=== PATIENT | male | born 1940 | race Caucasian/White ===

== ENCOUNTER 2023-12-29 21:57 | Inpatient (IN) | payer MEDICARE, SELFPAY ==
[2023-12-29 18:11] VITALS: BP 141/66
[2023-12-29 18:12] VITALS: BMI 21.6
[2023-12-29 18:21] LABS: Hematocrit 33.6 % (39.0-52.0); Hemoglobin 11.4 g/dL (13.0-18.0); Mean Corp Hgb Conc. 33.9 g/dL (33.0-37.0); Mean Corpuscular Hgb 30.7 pg (27.0-31.0); Mean Corpuscular Volume 90.6 fL (80.0-94.0); Platelet Count 232 10^3/uL (130-400); Red Blood Cell Count 3.71 10^6/uL (4.70-6.10); Red Cell Dist. Width 13.3 % (11.5-14.5); White Blood Cell Count 9.1 10^3/uL (4.8-10.8)
[2023-12-29 18:48] LABS: ALT (SGPT) 13 U/L (0-50); AST (SGOT) 16 U/L (17-59); Albumin 3.8 g/dl (3.5-5.0); Alkaline Phosphatase 110 U/L (38-126); Blood Urea Nitrogen 30 mg/dl (9-20); Calcium 9.5 mg/dl (8.4-10.2); Carbon Dioxide 23 mmol/L (22-30); Chloride 103 mmol/L (98-107); Estimated Creatinine Clearance 26 ml/min; Glucose 109 mg/dl (70-99); Magnesium 2.1 mg/dl (1.6-2.3); Potassium 4.3 mmol/L (3.5-5.1); Sodium 132 mmol/L (135-145); Total Bilirubin 0.5 mg/dl (0.2-1.3); Total Protein 6.6 g/dl (6.3-8.2); eGFR 36.43
[2023-12-29 19:00] VITALS: BP 150/87
--- NOTE | 2023-12-29 19:08 | ED.CVA ---
History of Present Illness
General
Chief Complaint: CVA/TIA Symptoms
Source: patient
Exam Limitations: dementia
Time Seen by Provider: 12/29/23 17:59
Nursing documentation reviewed up to this point in time: agreed with
Onset of Stroke Symptoms
Onset of symptoms known: Yes
Date of onset of symptoms: 12/29/23
Travel History
Have you had any contact with someone who has COVID-19?: Unable to Answer
Do you have any symptoms of coronavirus? Fever > 100 degrees, chills, cough, shortness of breath, sore throat, loss of taste or smell, muscle aches, or headache?: Unable to Answer
History of Present Illness
History of Present Illness:
Patient with history of dementia, presents to ED secondary to increased 'lethargy', depressed mental status, along with right facial pain and swelling, noted by family, along with generalized weakness. Patient brought to ED by paramedics with
possible prehospital stroke alert, secondary to facial droop noted by pick up truck driver along with right arm weakness. Upon arrival, patient is somnolent but noted to be moving upper and lower extremities spontaneously. Patient is somnolent but arousable
to voice and physical stimuli. Unfortunately, patient does not offer any additional information verbally.
Review of Systems
Review of Systems
Allergies reviewed?: Yes
Unable to obtain full review of systems at this time due to: dementia
All Other Systems: Not applicable
Phy Exam
Physical Exam
Physical Exam:
Physical Exam
General: mild distress, not acutely ill. afebrile.
Head: nc/at. eomi
Neck: supple. no meningeal signs.
Heart: s1/s2 regular rate and rhythm, no murmur. equal radial pulses.
Lungs: no acute respiratory distress. clear bilaterally
Abdomen: normal bowel sounds. not tender.
Neuro: somnolent but arousable. moving upper a
Skin: no rash
Extremities: no edema.
Course
Orders/Labs/Results
Orders:
Orders
12/29/23 17:59
CT Head W/o Cont STROKE ALERT Urgent
Reason For Exam: right facial droop with aphasia
12/29/23 18:00
Electrocardiogram (*1) Urgent
Reason for Study: TIA/Stroke
EKG- Treatment ONCE
12/29/23 18:16
Complete Blood Count/No Diff Urgent
Comprehensive Metabolic Panel Urgent
Magnesium Urgent
12/29/23 18:47
Lactic Acid Q4H
Comment: CANCEL 2nd LACTIC ACID IF 1st LACTIC ACID IS LESS THAN 2
Blood Culture Q30M
RADHA Source: Blood/Venous
Specimen Description:
Blood Culture Q30M
RADHA Source: Blood/Venous
Specimen Description:
12/29/23 19:08
CT Facial Bones W/o Iv Contras Urgent
Comment:
Reason For Exam: right facial swelling/redness/pain
12/29/23 20:05
Urinalysis Reflex To Culture Urgent
Date Specimen was Collected: 12/29/23
Time Specimen was Collected: 20:04
Urine Microscopic Reflex Cult Urgent
Urine Culture Urgent
RADHA Source: U
Specimen Description:
Date Specimen was Collected: 12/29/23
Time Specimen was Collected: 20:04
12/29/23 20:22
0.9% Sodium Chloride 500 ml [Nss] 500 ml IV BOLUS
Piperacillin/Tazo 3.375 Gram [Zosyn] 3.375 gram in 50 ml IV NOW
12/29/23 21:31
Admit/Transfer Patient As Directed
Co-Sign Provider:
Level of Care: Inpatient admission
Assign to:: Medical/Surgical
Physician / Group: Efe
Diagnosis: Dental Abscess, Facial Cellulitis, Urinary Retention / UTI
Reason for Hospitalization: Dental Abscess, Facial Cellulitis, Urinary Retention / UTI
Expected length of stay greater than two midnights?: Yes
ELOS- Estimated Length of Stay in days: 3
I certify the patient meets the requirements for IP care: Yes
12/29/23 21:33
Code Status As Directed
Resuscitation Status: Do not resuscitate
Based on pt advanced directive or healthcare POA form: Yes
12/29/23 21:36
DNR Bracelet Application ONCE
12/29/23 22:47
0.9% Sodium Chloride 1000 ml [Nss] 1,000 ml IV 100 mls/hr
Acetaminophen [Tylenol] 650 mg PO Q4HPRN PRN
Quetiapine Fumarate [Seroquel] 12.5 mg PO Q6HPRN PRN
12/29/23 22:47
Activity As Directed
Activity Level: Ambulate
With Assistance
Bladder Scan As Directed
Follow Bladder Retention/Intermittent Cath Algorithm?: Yes
PRN if no void in __ hours: 6
Frequency: Per Retention Algorithm
If Bladder Scan Result >: 400
then:: Straight cath
I/O [Intake/ Output] As Directed
Frequency: Per unit guidelines
Orthostatic Vital Signs As Directed
Orthostatic VS Frequency: BID
Pneumatic Compression Sleeves As Directed
Type: Knee high
Straight Cath As Directed
Frequency: Per Retention Algorithm
Additional Instructions: straight cath as needed per acute urinary retention algorithm for 24 hrs
Additional Instructions: for bladder scan greater than 400 mL
Vital Signs As Directed
Frequency: Per unit guidelines
Weight As Directed
Frequency: Daily
Oxygen Therapy [O2 Therapy] [RESP] Routine
Titrate/Wean O2 to maintain O2 sat greater than (%): 94
Ot Eval And Treat Routine
PT Consult [Pt Eval And Treat] Routine
Activity Level: Ambulate
With Assistance
DX Deep Vein Thrombosis Video Routine
12/29/23 23:10
Lactic Acid Q4H
Comment: CANCEL 2nd LACTIC ACID IF 1st LACTIC ACID IS LESS THAN 2
12/30/23 04:00
Piperacillin/Tazo 2.25 Gram [Zosyn] 2.25 grams in 50 ml IV Q6H
12/30/23 Breakfast
Clear Liquid
At Your Request: Non-Participating
Does patient need a safe tray?: No
12/30/23 07:17
Basic Metabolic Panel IN AM
Complete Blood Count/No Diff IN AM
12/30/23 08:00
Amlodipine [Norvasc] 5 mg PO DAILY
Aspirin Low Dose EC [Aspir Low (Enteric Coated)] 81 mg PO DAILY
Finasteride [Proscar] 5 mg PO DAILY
Heparin 5,000 units SC Q12
Losartan [Cozaar] 100 mg PO DAILY
Memantine HCl [Namenda] 10 mg PO BID
Tamsulosin [Flomax] 0.4 mg PO BID
12/30/23 12:00
Famotidine [Pepcid] 20 mg PO NOON
Sertraline HCl [Zoloft] 50 mg PO NOON
Abnormal Lab Results
12/29/23 12/29/23
18:16 20:05
RBC 3.71 L 10^6/uL
(4.70-6.10)
Hgb 11.4 L g/dL
(13.0-18.0)
Hct 33.6 L %
(39.0-52.0)
Sodium 132 L mmol/L
(135-145)
BUN 30 H mg/dl
(9-20)
Creatinine 1.8 H mg/dL
(0.7-1.3)
Glucose 109 H mg/dl
(70-99)
AST 16 L U/L
(17-59)
Ur Occult Blood Reflex Trace A
(Negative)
Urine Nitrite (Reflex) Positive A
(Negative)
Leukocyte Esterase Rfl 2+ A
(Negative)
Urine WBC (Reflex) 90-100 A /HPF
(0-5)
Urine Bacteria (Reflex) Moderate A
(Negative)
12/29/23 18:16
12/29/23 18:16
Vital Signs
Initial and Last Documented VS:
Initial Vital Signs
Temp Pulse Resp BP Pulse Ox
97.2 F 78 26 141/66 97
12/29/23 18:11 12/29/23 18:11 12/29/23 18:11 12/29/23 18:11 12/29/23 18:11
Last Documented Vital Signs
Temp Pulse Resp BP Pulse Ox
98 F 77 16 127/89 97
12/31/23 15:00 12/31/23 15:00 12/31/23 15:00 12/31/23 15:00 12/31/23 15:00
MDM/Problems Addressed
MDM/Problems Addressed:
History and exam concerning for infectious etiology behind patient's mental status change, less like TIA/CVA. Patient will be given IV antibiotics and admitted for further evaluation and treatment.
*Critical Care Note
Total Time (30-74mins, 75-104mins- exclusive of procedures): Not Applicable
ED Attending Note
-
Portions of this chart may have been created with voice recognition software.� Occasional wrong word or��sound alike� substitutions may have occurred due to the inherent limitations of voice recognition software.
Discharge Plan
Departure
Patient Disposition: Admit
Date of Disposition: 12/29/23
Time of Disposition: 20:30
Admit to: Telemetry
Presentation/result/management discussed w/ accepting MD/DO: Hospitalist
Discharge Problem:
Cellulitis of face, Acute UTI, Acute urinary retention
Interventions
Interventions:
*Risk Screen - Suicide Last Done: 12/29/23 23:15
*General Assessment Last Done: 12/29/23 18:27
*Neglect/Abuse Screening Last Done: 12/29/23 22:54
ED- Fall Risk Assessment Last Done: 12/29/23 18:14
*ED COVID-19 Vaccine History Last Done: 12/29/23 23:15
*Nursing Disposition Last Done: 12/29/23 22:54
ED- Pulmonary Assessment Last Done: 12/29/23 18:32
ED- Neurological Assessment Last Done: 12/29/23 18:32
ED- Cardiac Assessment Last Done: 12/29/23 22:53
Discharge Date and Time
Discharge Date/Time: 12/29/23 22:55
[2023-12-29 19:13] LABS: Lactic Acid 1.4 mmol/L (0.7-2.0)
[2023-12-29 20:13] LABS: Urine Albumin Trace (Neg - Trace); Urine Bilirubin Negative (Negative); Urine Character Clear (Clear); Urine Color Yellow; Urine Glucose Negative (Negative); Urine Ketone Negative (Negative); Urine Leukocyte 2+ (Negative); Urine Nitrite Positive (Negative); Urine Occult Blood Trace (Negative); Urine Urobilinogen Negative (Neg - 1+)
[2023-12-29 20:32] LABS: Urine Squamous Cell 0-2 /LPF (Few); Urine White Cell 90-100 /HPF (0-5)
[2023-12-29 20:33] LABS: Urine Bacteria Moderate (Negative); Urine Red Blood Cell 0-2 /HPF (0-2)
[2023-12-29] MEDS: NSS 500 IV (21:18)
[2023-12-29] MEDS: ZOSYN 50 IV (21:18)
--- NOTE | 2023-12-29 21:38 | HPS.HSE ---
Family Physician
-
Family Physician: Antwan Carroll
Chief Complaint
-
Confusion. Facial Swelling
History of Present Illness
Patient is an 83y M with PMH significant for senile dementia, hypertension and BPH who presents to ED for evaluation of increased confusion, lethargy and new facial swelling. History obtained from family at the bedside. Patient is awake and
alert - but confused and not able to contribute significantly to this history. Patient has apparently been doing fairly well in his dementia care facility. Today he was noted by staff to have significant swelling of the R face / jaw. Family was
contacted and went to see the patient. At that time, he was noted to be somnolent and was very difficult to arouse at the facility. He was brought to the ED for further evaluation and treatment.
In the ED, patient has since become more alert and interactive - though he remains confused. He denies any significant pain at present.
He is noted to have significant R facial swelling and redness. He was also noted to have urinary retention and was straight cathed in the ED for 423cc of urine.
Medical History
Past Medical History
Past Medical History: Reports Other
Additional Past Medical History:
Senile Dementia
Hypertension
GERD
BPH / Urinary Retention
Atopic Dermatitis
Past Surgical History: Reports None and Other
Social History
Unable to obtain full social history at this time due to: Dementia
Family History
Family History: Not pertinent
Allergies / Home Medications
Allergies reflects when Allergies were last updated in [facility].
Home Medications with original date entered in [facility]
Allergy/Medication List:
Allergies
Allergy/AdvReac Type Severity Reaction Status Date / Time
No Known Allergies Allergy Unverified 12/29/23 18:13
Home Medications
amlodipine 5 mg tablet (Norvasc) 5 mg PO DAILY 12/29/23
aspirin 81 mg tablet,delayed release 81 mg PO DAILY 12/29/23
cholecalciferol (vitamin D3) 50 mcg (2,000 unit) tablet (Vitamin D3) 50 mcg PO DAILY 12/29/23
dextromethorphan-guaifenesin 10 mg-100 mg/5 mL oral syrup (Chest Congestion Relief DM) 10 ml PO Q4HPRN PRN COUGH 12/29/23
dupilumab 300 mg/2 mL subcutaneous syringe (Dupixent) 300 mg SC Q2W 12/29/23
ergocalciferol (vitamin D2) 1,250 mcg (50,000 unit) capsule (Drisdol) 1,250 mcg PO QWEEK 12/29/23
famotidine 20 mg tablet (Pepcid) 20 mg PO NOON 12/29/23
finasteride 5 mg tablet (Proscar) 5 mg PO DAILY 12/29/23
hydralazine 10 mg tablet 5 mg PO TIDPRN PRN HIGH BP 12/29/23
losartan 100 mg tablet 100 mg PO DAILY 12/29/23
memantine 10 mg tablet 10 mg PO BID 12/29/23
pravastatin 40 mg tablet 40 mg PO HS 12/29/23
sertraline 50 mg tablet 50 mg PO NOON 12/29/23
tamsulosin 0.4 mg capsule (Flomax) 0.4 mg PO DAILY 12/29/23
Review of Systems
-
History Source: Patient and Family
A 12 point ROS was completed and negative except as noted: Yes
Constitutional: Denies Fever or Chills
EENT: Reports Mouth Pain and Other (Poor dentition.)
Respiratory: Denies Cough
Cardiac: Denies Chest Pain
Abdomen/GI: Denies Abdominal Pain, Nausea or Vomiting
Musculoskeletal: Denies Joint Pain or Edema
Neurological: Denies Dizzy or Headache
Psych: Reports Dementia
Physical Exam
Vital Signs
Vital Signs
Temp Pulse Resp BP Pulse Ox
97.2 F 89 23 150/87 90
12/29/23 18:11 12/29/23 19:15 12/29/23 19:15 12/29/23 19:00 12/29/23 19:15
Physical Exam
General: Other (83y M in no acute distress.)
HEENT: Other (Very poor dentition. Few intact teeth. Multiple teeth maxillary / mandibular worn to the gum line. Edema and erythema centering on R mandibular molar and extending to R cheek, jaw, neck.)
Respiratory: Clear; No Wheezes, Rales or Rhonchi
Cardiac: S1/S2 and Regular Rhythm; No Murmur
GI: Soft, Non Tender, Non Distended and Normal Bowel Sounds
Musculoskeletal: No Clubbing, No Cyanosis and No Edema
Neuro: Awake and Alert; No Oriented
Psych: No Agitated or Anxious
Laboratory Results
-
12/29/23 18:16
12/29/23 18:16
Laboratory Results
Lactic Acid 1.4 mmol/L (0.7-2.0) 12/29/23 18:47
Total Bilirubin 0.5 mg/dl (0.2-1.3) 12/29/23 18:16
AST 16 U/L (17-59) L 12/29/23 18:16
ALT 13 U/L (0-50) 12/29/23 18:16
Alkaline Phosphatase 110 U/L (38-126) 12/29/23 18:16
Impression/Plan
-
A/P: Patient is an 83y M with PMH significant for dementia, BPH and hypertension who presents to ED for evaluation of R facial swelling and confusion / lethargy.
Right Mandibular Odontogenic Infection
Facial Cellulitis secondary to the above
- Admit for further evaluation and treatment.
- IV abx, pain control, supportive care.
- Follow for significant improvement in facial swelling, pain, etc.
- Transition to oral abx and follow-up with dental as an outpatient for definitive treatment / tooth extraction(s).
- Consider OMFS eval as an inpatient if symptoms worsen or do not improve.
BPH
Urinary Retention secondary to the above
UTI secondary to the above
- > 400cc on bladder scan.
- Continue tamsulosin and finasteride.
- Follow bladder scan and straight cath PRN.
- Try to avoid Espinoza placement if possible given dementia / history of pulling at catheter, etc.
- Abx to cover dental and infections.
- Follow-up culture data.
benign Hypertension
- Stable. Continue outpatient meds with holding parameters.
CKD III
- Stable. Renal function is at / near known baseline.
- Follow for any changes.
Senile Dementia
- Stable. Some recent agitation / restlessness per family.
- Continue usual outpatient med regimen.
- Add low dose quetiapine for acute agitation PRN.
Atopic Dermatitis
- Hold Dupixent for now.
DVT Prophylaxis: Subcut Heparin
Code Status: DNR
[2023-12-29 23:00] VITALS: BP 175/80; BMI 20.2
[2023-12-29] MEDS: NSS 1000 IV (23:25)
[2023-12-29] MEDS: SEROQUEL 12.5 MG PO (23:35)
[2023-12-29] MEDS: TYLENOL 650 MG PO (23:37)
[2023-12-29 23:46] LABS: Lactic Acid 1.5 mmol/L (0.7-2.0)
--- NOTE | 2023-12-30 00:11 | PTCARENOTE ---
Pt arrived to unit at around 2300 and ambulated from the stretcher with +1 assistance of his son. Patients VSS and call weathers within reach. Pt denied any pain, but did state that he had a headache. Tylenol was administered promptly. Pt family at
bedside and assisted with answering admission questions.
[2023-12-30] MEDS: ZOSYN 50 IV ×4 (03:42→21:31)
[2023-12-30 05:20] VITALS: BMI 20.1
--- NOTE | 2023-12-30 05:50 | PTCARENOTE ---
Patient refused orthostatic BPs getting agitated and moving arms constantly. Multiple attempts to obtain orthos this shift with patient being uncooperative.
[2023-12-30 06:00] VITALS: BMI 20.1
[2023-12-30 07:00] VITALS: BP 169/84
[2023-12-30 07:43] LABS: Hematocrit 33.4 % (39.0-52.0); Hemoglobin 11.6 g/dL (13.0-18.0); Mean Corp Hgb Conc. 34.7 g/dL (33.0-37.0); Mean Corpuscular Hgb 30.9 pg (27.0-31.0); Mean Corpuscular Volume 89.1 fL (80.0-94.0); Platelet Count 197 10^3/uL (130-400); Red Blood Cell Count 3.75 10^6/uL (4.70-6.10); Red Cell Dist. Width 13.2 % (11.5-14.5); White Blood Cell Count 7.3 10^3/uL (4.8-10.8)
[2023-12-30 08:19] LABS: Blood Urea Nitrogen 26 mg/dl (9-20); Calcium 9.1 mg/dl (8.4-10.2); Carbon Dioxide 21 mmol/L (22-30); Chloride 110 mmol/L (98-107); Estimated Creatinine Clearance 26 ml/min; Glucose 110 mg/dl (70-99); Potassium 4.3 mmol/L (3.5-5.1); Sodium 137 mmol/L (135-145); eGFR 39.02
[2023-12-30] MEDS: NAMENDA 10 MG PO ×2 (09:17→19:31)
[2023-12-30] MEDS: HEPARIN 5000 UNITS SC ×2 (09:17→19:31)
[2023-12-30] MEDS: FLOMAX 0.400000000000000022 MG PO ×2 (09:17→19:31)
[2023-12-30] MEDS: PROSCAR 5 MG PO (09:17)
[2023-12-30] MEDS: COZAAR 100 MG PO (09:17)
[2023-12-30] MEDS: NORVASC 5 MG PO (09:17)
[2023-12-30] MEDS: ASPIR LOW (ENTERIC COATED) 81 MG PO (09:17)
--- NOTE | 2023-12-30 09:28 | PTOTSP ---
ST Screening
Pt admitted for R facial pain and swelling as well as generalized weakness. Pt with no hx of requiring SHROUDMAN services. Pt with hx of dementia. Pt has been afebrile without leukocytosis. Pt with abnormal UA, BUN 26, and Creatinine 1.7. Pt dx with R
mandibular odontogenic infection with cellulitis as well as UTI. RN screenings indicate pt difficulty with communicating which could be 2/2 acute encephalopathy vs chronic dementia. Pt also with missing several teeth. Pt may benefit from a dysphagia
evaluation given missing dentition and acute odontogenic infection. Please order SHROUDMAN evaluation if pt is experiencing difficulty tolerating regular diet given his acute and chronic conditions. Thank you.
[2023-12-30] MEDS: NSS 1000 IV ×2 (09:45→23:11)
--- NOTE | 2023-12-30 12:51 | W.PN.HOSP.TC ---
Today's Communication/Plan
-
Continue IV antibiotics monitoring right facial cellulitis and pending urine cultures.
Currently stable respiratory status with no evidence of airway compromise, no clinical indication for urgent OMS intervention.
Monitor for recurrent retention with repeated bladder scan.
Follow renal function.
Speech and swallow evaluation advance diet as recommended.
Plan of care discussed with patient's family at the bedside.
Assessment / Plan
Assessment / Plan
Impression:
Patient is an 83y M with PMH significant for dementia, BPH and hypertension who presents to ED for evaluation of R facial swelling and confusion / lethargy.
Right mandibular abscess with cellulitis
BPH with acute retention.
Conditions prior to admission:
CKD stage IIIa�B with baseline creatinine 1.5�1.6
Senile dementia
Atopic dermatitis.
Plan
Right Mandibular Odontogenic Infection
Facial Cellulitis secondary to the above
- Admit for further evaluation and treatment.
- IV abx, pain control, supportive care.
- Follow for significant improvement in facial swelling, pain, etc.
- Transition to oral abx and follow-up with dental as an outpatient for definitive treatment / tooth extraction(s).
- Consider OMFS eval as an inpatient if symptoms worsen or do not improve.
BPH
Urinary Retention secondary to the above
UTI secondary to the above
- > 400cc on bladder scan.
- Continue tamsulosin and finasteride.
- Follow bladder scan and straight cath PRN.
- Try to avoid Espinoza placement if possible given dementia / history of pulling at catheter, etc.
- Abx to cover dental and infections.
- Follow-up culture data.
benign Hypertension
- Stable. Continue outpatient meds with holding parameters.
CKD III
- Stable. Renal function is at / near known baseline.
- Follow for any changes.
Senile Dementia
- Stable. Some recent agitation / restlessness per family.
- Continue usual outpatient med regimen.
- Add low dose quetiapine for acute agitation PRN.
Atopic Dermatitis
- Hold Dupixent for now.
DVT Prophylaxis: Subcut Heparin
Code Status: DNR
Anticipated Discharge: 24 - 48 hours
Subjective/Interval History
-
Date of Service: December 30, 2023
Objective Data
-
Labs:
Laboratory Results
12/30/23
07:17
WBC 7.3
Hgb 11.6 L
Hct 33.4 L
Plt Count 197
Sodium 137
Potassium 4.3
Chloride 110 H
Carbon Dioxide 21 L
BUN 26 H
Creatinine 1.7 H
Glucose 110 H
Calcium 9.1
Vital Signs:
Vital Signs
Temp Pulse Resp BP Pulse Ox
97.5 F 80 16 169/84 99
12/30/23 07:00 12/30/23 07:00 12/30/23 07:00 12/30/23 07:00 12/30/23 09:15
I&O
12/29/23 12/30/23 12/31/23
06:59 06:59 06:59
Intake Total 530 / 530
Balance 530 / 530
Physical Exam
-
General: Well Developed and No Apparent Distress
HEENT: Normocephalic, Atraumatic and Moist Mucous Membranes
Respiratory: Clear to Auscultation
Cardiac: Regular Rhythm and S1/S2; Negative Murmur, Rub or Gallop
GI: Soft, Nontender, Nondistended and Normal Bowel Sounds; Negative Organomegaly
Rectal: Deferred by Provider
Musculoskeletal: No Clubbing, No Cyanosis and No Edema
Skin: Negative Rash
Neuro: Awake, Alert, Oriented, AO x 3 (Name only) and Nonfocal/Grossly Intact
[2023-12-30] MEDS: ZOLOFT 50 MG PO (13:00)
[2023-12-30] MEDS: PEPCID 20 MG PO (13:00)
--- NOTE | 2023-12-30 14:43 | CM ---
Patient seen bedside with and son, initial assessment completed by family. Per son, patient resides at [facility] in the Memory Unit, denies the use of DME. Son denies VN for patient, reports SNF about two years ago, unsure of where. PCP
confirmed Dr. Antwan Carroll, pharmacy [place]. Family looking for dental recommendations as patient has dementia and low pain threshold and will need anesthesia for tooth extraction. CM will continue to follow for discharge planning needs.
Plan; return to [facility] when stable.
[2023-12-30 15:00] VITALS: BP 143/67
--- NOTE | 2023-12-30 15:36 | PTOTSP ---
ST Acute Care Evaluation
Pt presents with mild oral dysphagia 2/2 current R mandibular odontogenic infection with facial cellulitis.
Recommendations:
- Initiate PO diet of SOFT BITE SIZED SOLIDS with REGULAR THIN LIQUIDS and meds as tolerated.
- General aspiration precautions.
- MDS NURSE will continue to follow.
[2023-12-30 15:52] VITALS: BP 143/67; BP 147/72; BP 149/64; PULSE 74; PULSE 84; PULSE 85; O2SAT 97
[2023-12-30 15:55] VITALS: BP 143/67; BP 147/72; BP 149/64; PULSE 74; PULSE 84; PULSE 85; O2SAT 97
[2023-12-30 23:15] VITALS: BP 120/58
[2023-12-31 02:30] VITALS: BP 102/60; BP 147/78; BP 160/73; PULSE 100; PULSE 86; PULSE 99
[2023-12-31] MEDS: ZOSYN 50 IV ×2 (03:49→09:31)
[2023-12-31 04:45] VITALS: BMI 20.6
[2023-12-31 06:50] LABS: % Basophils 0.4 % (0-2); % Eosinophils 6.1 % (0-6); % Immature Granulocytes 0.1 % (0-0.5); % Lymphocytes 14.3 % (20.5-51.1); % Monocytes 9.2 % (1.7-9.3); % Neutrophils 69.9 % (42.2-75.2); Absolute Eosinophils 0.4 10^3/uL (0-0.7); Absolute Monocytes 0.7 10^3/uL (0.1-0.6); Absolute Neutrophils 4.9 10^3/uL (1.4-6.5); Hematocrit 33.5 % (39.0-52.0); Hemoglobin 11.1 g/dL (13.0-18.0); Mean Corp Hgb Conc. 33.1 g/dL (33.0-37.0); Mean Corpuscular Hgb 30.7 pg (27.0-31.0); Mean Corpuscular Volume 92.5 fL (80.0-94.0); Nucleated Red Blood Cells % 0 % (-); Platelet Count 199 10^3/uL (130-400); Red Blood Cell Count 3.62 10^6/uL (4.70-6.10); Red Cell Dist. Width 13.1 % (11.5-14.5); White Blood Cell Count 7.1 10^3/uL (4.8-10.8)
[2023-12-31 07:00] VITALS: BP 142/72
[2023-12-31 07:12] LABS: Blood Urea Nitrogen 16 mg/dl (9-20); Calcium 8.9 mg/dl (8.4-10.2); Chloride 111 mmol/L (98-107); Estimated Creatinine Clearance 27 ml/min; Glucose 104 mg/dl (70-99); Potassium 3.9 mmol/L (3.5-5.1); Sodium 136 mmol/L (135-145); eGFR 39.02
[2023-12-31 07:23] LABS: Carbon Dioxide 24 mmol/L (22-30)
[2023-12-31] MEDS: NSS 1000 IV (09:33)
[2023-12-31] MEDS: HEPARIN 5000 UNITS SC (09:35)
[2023-12-31] MEDS: NORVASC 5 MG PO (09:36)
[2023-12-31] MEDS: PROSCAR 5 MG PO (09:36)
[2023-12-31] MEDS: NAMENDA 10 MG PO (09:37)
[2023-12-31] MEDS: ASPIR LOW (ENTERIC COATED) 81 MG PO (09:37)
[2023-12-31] MEDS: FLOMAX 0.400000000000000022 MG PO (09:37)
[2023-12-31] MEDS: COZAAR 100 MG PO (09:37)
--- NOTE | 2023-12-31 13:28 | W.DS.TRANS ---
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
-
Discharge Instructions:
Discharge Diagnosis/Procedures Right mandibular abscess with cellulitis.
UTI
Diet Regular
Instructions:
Stand-Alone Forms:
Changes to Home Medications: Yes
Discharge Medications:
DC Medications w/original date entered in [facility]
amlodipine 5 mg tablet (Norvasc) 5 mg PO DAILY Blood Pressure 12/29/23
aspirin 81 mg tablet,delayed release 81 mg PO DAILY Blood Clot Prevention/Tx 12/29/23
cholecalciferol (vitamin D3) 50 mcg (2,000 unit) tablet (Vitamin D3) 50 mcg PO DAILY Supplement 12/29/23
dextromethorphan-guaifenesin 10 mg-100 mg/5 mL oral syrup (Chest Congestion Relief DM) 10 ml PO Q4HPRN PRN COUGH 12/29/23
dupilumab 300 mg/2 mL subcutaneous syringe (Dupixent) 300 mg SC Q2W Lung/Breathing Issues 12/29/23
ergocalciferol (vitamin D2) 1,250 mcg (50,000 unit) capsule (Drisdol) 1,250 mcg PO QWEEK Supplement 12/29/23
famotidine 20 mg tablet (Pepcid) 20 mg PO NOON Gastrointestinal Issue 12/29/23
finasteride 5 mg tablet (Proscar) 5 mg PO DAILY Urinary Issue 12/29/23
hydralazine 10 mg tablet 5 mg PO TIDPRN PRN HIGH BP 12/29/23
losartan 100 mg tablet 100 mg PO DAILY Blood Pressure 12/29/23
memantine 10 mg tablet 10 mg PO BID Neurological Condition 12/29/23
pravastatin 40 mg tablet 40 mg PO HS High Cholesterol 12/29/23
sertraline 50 mg tablet 50 mg PO NOON Mental Health/Anxiety 12/29/23
tamsulosin 0.4 mg capsule (Flomax) 0.4 mg PO DAILY Urinary Issue 12/29/23
amoxicillin 875 mg-potassium clavulanate 125 mg tablet 1 tab PO Q12H #14 tabs 12/31/23
Home Medication Changes
antibiotics to complete course as op
Pending Results: No
[2023-12-31] MEDS: ZOLOFT 50 MG PO (13:32)
[2023-12-31] MEDS: PEPCID 20 MG PO (13:32)
[2023-12-31] MEDS: UNASYN IV (14:19)
--- NOTE | 2023-12-31 14:34 | CM ---
CM left two voicemails to [facility] at [place], unable to speak to nurse. Patients son provided CM with nursing directors contact number, [facility] Pelletier, spoke with Ashlee, able to accept patient back. CM faxed clinicals to [facility], discussed
PT recommendation of home health, Ashlee reports they will start PT/OT with patient, family agreeable. Medications sent to [facility] pharmacy in [facility] in [place]. IMM signed placed in chart. Patients family to transport home. CM will continue to
follow for discharge planning needs.
Plan; return to [facility].
[2023-12-31 15:00] VITALS: BP 127/89
[2024-01-15 08:27] LABS: Glucose - Point of Care 112 mg/dl (70-99)
== END 2023-12-31 16:53 | disposition home health service (06) | DRG 603 ==
LOC: 4 WEST ACU 21:57
PROVIDERS: ADMITTING PHYSICIAN Hospitalist; ATTENDING PHYSICIAN Internal Medicine; EMERGENCY PHYSICIAN Emergency Medicine; FAMILY PHYSICIAN Internal Medicine
DX: L03.211 Cellulitis of face (principal); N39.0 Urinary tract infection, site not specified; K04.7 Periapical abscess without sinus; Z66 Do not resuscitate; F03.90 Unspecified dementia, unspecified severity, without behavioral disturbance, psychotic disturbance, mood disturbance, and anxiety; N40.0 Benign prostatic hyperplasia without lower urinary tract symptoms; N18.31 Chronic kidney disease, stage 3a; I12.9 Hypertensive chronic kidney disease with stage 1 through stage 4 chronic kidney disease, or unspecified chronic kidney disease; L20.9 Atopic dermatitis, unspecified; M27.2 Inflammatory conditions of jaws
CPT/HCPCS: 51701; 51798; 70450; 70486; 80048; 80053; 81003; 81015; 82962; 83605; 83735; 85025; 85027; 87040; 87070; 87086; 87147; 87186; 92610; 93005; 96365; 97162; 97166; 99285

== ENCOUNTER 2024-02-13 09:30 | Emergency (ER) | payer MEDICARE, SELFPAY ==
[2024-02-13 09:42] VITALS: BP 181/76; BMI 23.0
[2024-02-13 09:47] VITALS: BP 181/76
[2024-02-13 10:00] VITALS: BP 196/80
[2024-02-13 10:09] LABS: % Basophils 0.3 % (0-2); % Eosinophils 7.5 % (0-6); % Immature Granulocytes 0.2 % (0-0.5); % Lymphocytes 16.1 % (20.5-51.1); % Neutrophils 64.9 % (42.2-75.2); Absolute Eosinophils 0.5 10^3/uL (0-0.7); Absolute Monocytes 0.7 10^3/uL (0.1-0.6); Absolute Neutrophils 3.9 10^3/uL (1.4-6.5); Hematocrit 38.5 % (39.0-52.0); Hemoglobin 12.9 g/dL (13.0-18.0); Mean Corp Hgb Conc. 33.5 g/dL (33.0-37.0); Mean Corpuscular Hgb 30.9 pg (27.0-31.0); Mean Corpuscular Volume 92.3 fL (80.0-94.0); Mean Platelet Volume 9.2 fL (7.4-10.4); Nucleated Red Blood Cells % 0 % (-); Platelet Count 180 10^3/uL (130-400); Red Blood Cell Count 4.17 10^6/uL (4.70-6.10); Red Cell Dist. Width 13.3 % (11.5-14.5)
[2024-02-13 10:16] LABS: ALT (SGPT) 14 U/L (0-50); AST (SGOT) 19 U/L (17-59); Albumin 3.8 g/dl (3.5-5.0); Alkaline Phosphatase 100 U/L (38-126); Blood Urea Nitrogen 20 mg/dl (9-20); Calcium 9.8 mg/dl (8.4-10.2); Carbon Dioxide 28 mmol/L (22-30); Chloride 107 mmol/L (98-107); Estimated Creatinine Clearance 29 ml/min; Glucose 113 mg/dl (70-99); Potassium 4.7 mmol/L (3.5-5.1); Sodium 140 mmol/L (135-145); Total Bilirubin 0.4 mg/dl (0.2-1.3); Total Protein 6.6 g/dl (6.3-8.2); eGFR 45.34
--- NOTE | 2024-02-13 10:19 | ED.GENMED ---
History of Present Illness
General
Chief Complaint: Change in Mental Status
Source: records and ambulance crew
Time Seen by Provider: 02/13/24 10:11
Travel History
Have you had any contact with someone who has COVID-19?: Unable to Answer
Do you have any symptoms of coronavirus? Fever > 100 degrees, chills, cough, shortness of breath, sore throat, loss of taste or smell, muscle aches, or headache?: Unable to Answer
History of Present Illness
History of Present Illness:
83-year-old male with past medical history of dementia, CKD, hypertension presenting to the emergency department for evaluation of reported change in mental status at his nursing facility over the last 24 hours. EMS reports staff felt the patient
was a little bit more sleepy than usual. They note patient is currently on antibiotics in preparation for dental procedure this coming week. Patient himself states he has no complaints at this time and is otherwise denying any headache, chest
pain, abdominal pain, nausea or any other concerns.
Past History
Past History
ED Past Medical History: GERD, HTN, Renal failure and Other (Dementia)
ED Past Surgical History: None
Social History
Tobacco: Non-smoker
Alcohol: None
Drug: None
Personal:
Living: residential
Review of Systems
Review of Systems
All Other Systems: ROS reviewed and negative except as documented in HPI and ROS
Phy Exam
Physical Exam
Physical Exam:
GENERAL: Sleeping but easily arousable to voice
HEAD: NCAT
EYE: conjunctiva clear
NECK: Supple, no significant adenopathy.
ENT: o/p clr, mmm.
CARDIAC: Regular rate and rhythm
LUNGS: Clear breath sounds bilaterally, no acute respiratory distress, no wheezes/rales/rhonchi
NEUROLOGICAL: Alert and oriented to self only but unable to name place or time
SKIN: Warm and dry, skin intact.
MUSCULOSKELETAL: well perfused.
PSYCH: Normal and appropriate interaction.
Scores
Heart Failure Risk
Heart Failure Risk Score: Not Applicable
Heart Score for Chest Pain Patients
STEMI patient?: Not applicable
Withdrawal Assessment of Alcohol
Withdrawal Assessment Completed?: Not applicable
Course
Orders/Labs/Results
Orders:
Orders
02/13/24 09:56
Complete Blood Count/With Diff Urgent
Comprehensive Metabolic Panel Urgent
02/13/24 10:16
CT Head W/o Iv Contrast Urgent
Comment:
Reason For Exam: AMS, hx of dementia
02/13/24 10:17
CR Chest Portable - 1 View Urgent
Comment:
Reason For Exam: altered mental status
Reason Study Needs to be Portable: Unable to Transport
02/13/24 11:26
Urinalysis Reflex To Culture Urgent
Date Specimen was Collected: 02/13/24
Time Specimen was Collected: 11:25
Abnormal Lab Results
02/13/24
09:56
RBC 4.17 L 10^6/uL
(4.70-6.10)
Hgb 12.9 L g/dL
(13.0-18.0)
Hct 38.5 L %
(39.0-52.0)
Absolute Lymphs (auto) 1.0 L 10^3/uL
(1.2-3.4)
Absolute Monos (auto) 0.7 H 10^3/uL
(0.1-0.6)
Lymphocytes % 16.1 L %
(20.5-51.1)
Monocytes % 11.0 H %
(1.7-9.3)
Eosinophils % 7.5 H %
(0-6)
Creatinine 1.5 H mg/dL
(0.7-1.3)
Glucose 113 H mg/dl
(70-99)
02/13/24 09:56
02/13/24 09:56
Vital Signs
Initial and Last Documented VS:
Initial Vital Signs
Pulse Resp BP
64 15 181/76
02/13/24 09:42 02/13/24 09:42 02/13/24 09:42
Last Documented Vital Signs
Temp Pulse Resp BP Pulse Ox
97.6 F 80 18 160/68 97
02/13/24 09:47 02/13/24 13:00 02/13/24 13:00 02/13/24 13:00 02/13/24 13:00
MDM/Problems Addressed
Differential Diagnosis Includes:
Dementia, urinary tract infection, pneumonia, intracranial pathology, hypertensive emergency
MDM/Problems Addressed:
83-year-old male presenting to the emergency department for evaluation of reported change in mental status. Patient is without any specific concerns at this time. Noted to be hypertensive on arrival here. CT of the head ordered to evaluate for
any intracranial pathology. Labs had been started. Will check a urine and chest x-ray as well. Patient is afebrile and otherwise hemodynamically stable.
Chronic conditions affecting care: Neurological disorder
Acute Exacerbation and/or Progression of Chronic Illness: Neurological disorder
*Radiology
Radiology exam reviewed: radiology read reviewed
*Pulse Oximetry
Patient hypoxic: no
*Post Acute Care Nurse Practitioner Interpretation
Rate: normal
Rhythm: sinus
*Critical Care Note
Total Time (30-74mins, 75-104mins- exclusive of procedures): Not Applicable
Data Reviewed
Review of Other/Old Records Reveals: Labs
Source: records and ambulance crew
Comment
Comment:
CT is unremarkable for any acute intracranial pathology. Patient's lab work shows to be at baseline. Currently continuing to monitor patient's blood pressure. Awaiting urinalysis. Disposition remains pending.
Patient Management
Social determinants of health affecting care: Living situation
Escalation/DeEscalation of care consider admission/obs:
Patient's labs, imaging and urine unremarkable. I made multiple attempts to contact patient's residential but was unsuccessful in speaking to any nursing staff. Family was provided with patient's labs as well as imaging reports. They feel
comfortable taking the patient back to his residential facility. Patient is otherwise stable for discharge and family is aware of return precautions.
ED Attending Note
-
Portions of this chart may have been created with voice recognition software.� Occasional wrong word or��sound alike� substitutions may have occurred due to the inherent limitations of voice recognition software.
Discharge Plan
Departure
Patient Disposition: Alf/SNF
Date of Disposition: 02/13/24
Time of Disposition: 11:54
Patient with high blood pressure during this ER visit?: Yes
Discharge Problem:
Dementia
Instructions: Dementia (DC)
Prescriptions:
No Action
amlodipine [Norvasc] 5 mg Tablet
5 mg PO DAILY
aspirin 81 mg Tablet,Delayed Release (Dr/Ec)
81 mg PO DAILY
tamsulosin [Flomax] 0.4 mg Capsule
0.4 mg PO QPM
finasteride [Proscar] 5 mg Tablet
5 mg PO DAILY
Dupixent Syringe 300 mg/2 mL Syringe
300 mg SC Q2W@1600
hydralazine 10 mg Tablet
5 mg PO TIDPRN PRN (Reason: HIGH BP)
pravastatin 40 mg Tablet
40 mg PO HS
dextromethorphan-guaifenesin [Chest Congestion Relief DM] 10-100 mg/5 mL Syrup
10 ml PO Q4HPRN PRN (Reason: COUGH)
famotidine [Pepcid] 20 mg Tablet
20 mg PO NOON
ergocalciferol (vitamin D2) [Drisdol] 1,250 mcg (50,000 unit) Capsule
1,250 mcg PO QWEEK
losartan 100 mg Tablet
100 mg PO DAILY
sertraline 50 mg Tablet
50 mg PO NOON
memantine 10 mg Tablet
10 mg PO BID
cholecalciferol (vitamin D3) [Vitamin D3] 50 mcg (2,000 unit) Tablet
50 mcg PO DAILY
amoxicillin 500 mg Capsule
500 mg PO TID
Patient Comments:
PATIENT STARTED ON 02/05/24
Referrals:
Antwan Carroll, [Family Provider] -
Interventions
Interventions:
*Risk Screen - Suicide Last Done: 02/13/24 09:47
*General Assessment Last Done: 02/13/24 09:47
*Neglect/Abuse Screening Last Done: 02/13/24 09:47
*ED COVID-19 Vaccine History Last Done: 02/13/24 09:47
*Nursing Disposition Last Done: 02/13/24 13:00
ED- Pulmonary Assessment Last Done: 02/13/24 09:52
ED-Psychological Assessment Last Done: 02/13/24 13:00
ED- Neurological Assessment Last Done: 02/13/24 09:52
ED- Cardiac Assessment Last Done: 02/13/24 13:00
Discharge Date and Time
Discharge Date/Time: 02/13/24 13:00
Print Language: DIVEHI
[2024-02-13 11:19] VITALS: BP 156/89
[2024-02-13 11:43] LABS: Urine Albumin Negative (Neg - Trace); Urine Bilirubin Negative (Negative); Urine Character Clear (Clear); Urine Color Yellow; Urine Glucose Negative (Negative); Urine Ketone Negative (Negative); Urine Leukocyte Negative (Negative); Urine Nitrite Negative (Negative); Urine Occult Blood Negative (Negative); Urine Specific Gravity 1.005 (<1.030); Urine Urobilinogen Negative (Neg - 1+)
[2024-02-13 12:00] VITALS: BP 160/68
[2024-02-13 13:00] VITALS: BP 160/68
== END 2024-02-13 13:00 ==
LOC: EMR 09:30
PROVIDERS: Emergency Medicine; Physician Assistant Medical; EMERGENCY PHYSICIAN Emergency Medicine; FAMILY PHYSICIAN Internal Medicine
DX: F03.90 Unspecified dementia, unspecified severity, without behavioral disturbance, psychotic disturbance, mood disturbance, and anxiety (principal); I12.9 Hypertensive chronic kidney disease with stage 1 through stage 4 chronic kidney disease, or unspecified chronic kidney disease; N18.9 Chronic kidney disease, unspecified; K21.9 Gastro-esophageal reflux disease without esophagitis
CPT/HCPCS: 99284; 70450; 71045; 80053; 81003; 85025

== ENCOUNTER 2024-03-10 17:18 | Emergency (ER) | payer MEDICARE, SELFPAY ==
[2024-03-10 17:32] VITALS: BP 146/52
--- NOTE | 2024-03-10 17:34 | ED.GENMED ---
History of Present Illness
General
Chief Complaint: Change in Mental Status
Source: records and ambulance crew
Time Seen by Provider: 03/10/24 17:20
Travel History
Have you had any contact with someone who has COVID-19?: Unable to Answer
Do you have any symptoms of coronavirus? Fever > 100 degrees, chills, cough, shortness of breath, sore throat, loss of taste or smell, muscle aches, or headache?: Unable to Answer
History of Present Illness
History of Present Illness:
This patient is an 83-year-old male who was noted to be 'acting differently' ever since today. Medics state that patient seemed to be calm and agreeable on transport, but as they arrived here they said he just seemed to be a little bit more
confused. His maximum heart rate was noted to be 105. The patient has no complaints. He is a poor historian however he denies, chest pain, shortness of breath, headache, dizziness, or other complaints.
Past History
Past History
ED Past Medical History: GERD, HTN, Renal failure and Other (Dementia)
Social History
Tobacco: Non-smoker
Alcohol: None
Drug: None
Personal:
Living: custodial
Phy Exam
Physical Exam
Physical Exam:
GENERAL: Alert , in no apparent distress
EYE: pupils equal and reactive, conjunctive a pink
NECK: Supple, no significant adenopathy.
ENT: o/p clr, mm dry, poor dentition
CARDIAC: Regular rate and rhythm .
LUNGS: Clear breath sounds bilaterally, no acute respiratory distress, no wheezes/rales/rhonchi
ABDOMEN: Soft, without focal tenderness, no r/g
NEUROLOGICAL: Alert but not oriented, speech slurred, moves all extremities equally, no facial droop,
SKIN: Warm and dry, skin intact.
MUSCULOSKELETAL: No edema, well perfused.
PSYCH: Normal and appropriate interaction in the context of baseline dementia.
Course
Orders/Labs/Results
Orders:
Orders
03/10/24
Electrocardiogram (*1) Stat
Reason for Study: Chest Pain
03/10/24 17:37
CT Head W/o Iv Contrast Urgent
Comment:
Reason For Exam: mental status change, slurred speech
Cardiac Monitoring- Treatment ONCE
Pulse Ox/cont/shift [RESP] Stat
Quantity: 1
03/10/24 18:23
Complete Blood Count/No Diff Urgent
Comprehensive Metabolic Panel Urgent
Lactic Acid Q4H
Comment: CANCEL 2nd LACTIC ACID IF 1st LACTIC ACID IS LESS THAN 2
Troponin I Urgent
Blood Culture Q30M
RADHA Source: Blood/Venous
Specimen Description:
Blood Culture Q30M
ARDHA Source: Blood/Venous
Specimen Description:
03/10/24 19:08
Urinalysis Reflex To Culture Urgent
Date Specimen was Collected: 03/10/24
Time Specimen was Collected: 19:07
03/10/24 19:46
CR Chest - 2 Views Urgent
Comment:
Reason For Exam: mental status change
Abnormal Lab Results
03/10/24
18:23
RBC 3.77 L 10^6/uL
(4.70-6.10)
Hgb 11.9 L g/dL
(13.0-18.0)
Hct 34.5 L %
(39.0-52.0)
MCH 31.6 H pg
(27.0-31.0)
Creatinine 1.7 H mg/dL
(0.7-1.3)
Glucose 128 H mg/dl
(70-99)
Lactic Acid 2.1 H mmol/L
(0.7-2.0)
AST 16 L U/L
(17-59)
03/10/24 18:23
03/10/24 18:23
Vital Signs
Initial and Last Documented VS:
Initial Vital Signs
Pulse Resp
85 22
03/10/24 17:31 03/10/24 17:31
Last Documented Vital Signs
Temp Pulse Resp BP Pulse Ox
97.8 F 97 17 144/94 91
03/10/24 20:46 03/10/24 20:00 03/10/24 20:00 03/10/24 20:00 03/10/24 20:00
*Critical Care Note
Total Time (30-74mins, 75-104mins- exclusive of procedures): Not Applicable
Update Note
Update Note:
Patient presents to the Emergency Department with reported mental status change
Number and Complexity of Problems Addressed at the Encounter
� Chronic conditions affecting care:
� Acute Exacerbation and/or Progression of Chronic Illness:
� Differential Diagnosis includes: But not limited to UTI, electrolyte disorder, normal progression of dementia, etc.
Amount and/or Complexity of Data to be Reviewed and Analyzed
� I performed an independent evaluation of and my interpretation is:
EKG: Read by me, normal sinus rhythm, normal rate, normal axis, no acute ischemia
CT:read by rads, head ct nad
Xrays:cxr read by me nad
Laboratory Studies:
Other:
� Review of other/old records reveals: Patient was admitted December 2023 to abscess and resulting cellulitis in the right mandibular area.
� Clinical information was obtained by an independent historian:ems
� Prescriptions/Medications Considered but not given:
� Further testing considered but not performed:
Risk of Complications and/or Morbidity or Mortality of Patient Management
� Social determinants of health affecting care:
� Discussion with other providers (PCP, Hospitalists, Consultants, etc):
� Escalation of care including admission/observation vs risk of discharge considered: Patient remains comfortable here, Long discussion with and son both open initial presentation and throughout his stay here. Essentially
workup here unremarkable. Very minimal elevation of lactic acid noted however patient does not represent stigmata of SIRS, no specific infection suspected. No focal findings. They find him to be 'better'. We mutually decided to have patient
return to his facility under close observation for changes and close neuro follow-up.
ED Attending Note
-
Portions of this chart may have been created with voice recognition software.� Occasional wrong word or��sound alike� substitutions may have occurred due to the inherent limitations of voice recognition software.
Discharge Plan
Departure
Patient Disposition: Home (Routine Discharge)
Date of Disposition: 03/10/24
Time of Disposition: 21:30
Patient with high blood pressure during this ER visit?: Yes
Condition: Good
Discharge Problem:
Altered mental status
Instructions: Altered Mental Status (DC), BLOOD PRESSURE
Prescriptions:
No Action
amlodipine [Norvasc] 5 mg Tablet
5 mg PO DAILY
aspirin 81 mg Tablet,Delayed Release (Dr/Ec)
81 mg PO DAILY
tamsulosin [Flomax] 0.4 mg Capsule
0.4 mg PO QPM
finasteride [Proscar] 5 mg Tablet
5 mg PO DAILY
Dupixent Syringe 300 mg/2 mL Syringe
300 mg SC Q2W@1600
hydralazine 10 mg Tablet
5 mg PO TIDPRN PRN (Reason: HIGH BP)
pravastatin 40 mg Tablet
40 mg PO HS
dextromethorphan-guaifenesin [Chest Congestion Relief DM] 10-100 mg/5 mL Syrup
10 ml PO Q4HPRN PRN (Reason: chest congestion)
famotidine [Pepcid] 20 mg Tablet
20 mg PO NOON
losartan 100 mg Tablet
100 mg PO DAILY
sertraline 50 mg Tablet
50 mg PO NOON
memantine 10 mg Tablet
10 mg PO BID
cholecalciferol (vitamin D3) [Vitamin D3] 50 mcg (2,000 unit) Tablet
50 mcg PO DAILY
benzonatate 100 mg Capsule
100 mg PO TID PRN (Reason: cough)
diphenhydramine HCl [Benadryl] 25 mg Capsule
25 mg PO Q6HPRN PRN (Reason: allergies)
ergocalciferol (vitamin D2) [Vitamin D2] 1,250 mcg (50,000 unit) Capsule
1,250 mcg PO LUCIANO
Triamcinolone Cream
1 applic topical BID
Rx Instructions:
use x 14 days, end date 03/12/24
Referrals:
Antwan Carroll, DO [Family Provider] -
Activity Restrictions/Additional Instructions:
PLEASE SEE YOUR DOCTOR IN CLOSE FOLLOW UP. IF YOU DEVELOP FEVER, VOMITING, CHEST PAIN, TROUBLE BREATHING, FOCAL WEAKNESS, OR OTHER WORRISOME SIGNS, GO TO THE ER IMMEDIATELY!
Interventions
Interventions:
*Risk Screen - Suicide Last Done: 03/10/24 17:33
*General Assessment Last Done: 03/10/24 17:33
*Neglect/Abuse Screening Last Done: 03/10/24 17:33
ED- Fall Risk Assessment Last Done: 03/10/24 17:35
*ED COVID-19 Vaccine History Last Done: 03/10/24 17:24
*Nursing Disposition Last Done: 03/10/24 21:51
ED- Pulmonary Assessment Last Done: 03/10/24 19:46
ED- Neurological Assessment Last Done: 03/10/24 20:46
ED- Cardiac Assessment Last Done: 03/10/24 19:46
Discharge Date and Time
Discharge Date/Time: 03/10/24 21:51
Print Language: PAP[place]
[2024-03-10 18:00] VITALS: BP 106/57
[2024-03-10 18:35] LABS: Hematocrit 34.5 % (39.0-52.0); Hemoglobin 11.9 g/dL (13.0-18.0); Mean Corp Hgb Conc. 34.5 g/dL (33.0-37.0); Mean Corpuscular Hgb 31.6 pg (27.0-31.0); Mean Corpuscular Volume 91.5 fL (80.0-94.0); Mean Platelet Volume 9.2 fL (7.4-10.4); Platelet Count 202 10^3/uL (130-400); Red Blood Cell Count 3.77 10^6/uL (4.70-6.10); Red Cell Dist. Width 13.1 % (11.5-14.5); White Blood Cell Count 8.1 10^3/uL (4.8-10.8)
[2024-03-10 18:49] LABS: Lactic Acid 2.1 mmol/L (0.7-2.0)
[2024-03-10 18:50] LABS: ALT (SGPT) 11 U/L (0-50); AST (SGOT) 16 U/L (17-59); Albumin 3.9 g/dl (3.5-5.0); Alkaline Phosphatase 90 U/L (38-126); Blood Urea Nitrogen 20 mg/dl (9-20); Calcium 9.8 mg/dl (8.4-10.2); Carbon Dioxide 25 mmol/L (22-30); Chloride 104 mmol/L (98-107); Glucose 128 mg/dl (70-99); Potassium 4.5 mmol/L (3.5-5.1); Sodium 137 mmol/L (135-145); Total Bilirubin 0.5 mg/dl (0.2-1.3); Total Protein 6.5 g/dl (6.3-8.2); eGFR 39.02
[2024-03-10 19:00] VITALS: BP 123/56
[2024-03-10 19:02] LABS: Troponin I < 0.012 ng/ml
[2024-03-10 19:33] LABS: Urine Albumin Negative (Neg - Trace); Urine Bilirubin Negative (Negative); Urine Character Clear (Clear); Urine Color Yellow; Urine Glucose Negative (Negative); Urine Ketone Negative (Negative); Urine Leukocyte Negative (Negative); Urine Nitrite Negative (Negative); Urine Occult Blood Negative (Negative); Urine Specific Gravity 1.015 (<1.030); Urine Urobilinogen Negative (Neg - 1+)
[2024-03-10 20:00] VITALS: BP 144/94
== END 2024-03-10 21:51 | disposition home or self-care (01) ==
LOC: EMR 17:18
PROVIDERS: EMERGENCY PHYSICIAN Emergency Medicine; FAMILY PHYSICIAN Internal Medicine
DX: R41.82 Altered mental status, unspecified (principal); I12.9 Hypertensive chronic kidney disease with stage 1 through stage 4 chronic kidney disease, or unspecified chronic kidney disease; N18.9 Chronic kidney disease, unspecified; K21.9 Gastro-esophageal reflux disease without esophagitis; F03.90 Unspecified dementia, unspecified severity, without behavioral disturbance, psychotic disturbance, mood disturbance, and anxiety; Z79.82 Long term (current) use of aspirin
CPT/HCPCS: 99285; 94760; 51798; 51701; 70450; 71046; 80053; 81003; 83605; 84484; 85027; 87040; 93005

== ENCOUNTER → 2024-11-01 13:43 | Outpatient (REF) | payer MEDICARE, SELFPAY ==
[2024-11-01 14:58] LABS: Blood Urea Nitrogen 32 mg/dl (9-20); Calcium 9.5 mg/dl (8.4-10.2); Carbon Dioxide 27 mmol/L (22-30); Chloride 104 mmol/L (98-107); Glucose 75 mg/dl (70-99); Potassium 4.5 mmol/L (3.5-5.1); Sodium 139 mmol/L (135-145); eGFR 45.06
== END ==
LOC: OLABPATH 13:43
PROVIDERS: ATTENDING PHYSICIAN Internal Medicine
DX: J10.1 Influenza due to other identified influenza virus with other respiratory manifestations (principal)
CPT/HCPCS: 36415; 80048

== ENCOUNTER 2024-11-21 09:40 | Emergency (ER) | payer OTHER, SELFPAY ==
[2024-11-21] VITALS (22 sets, daily range): BP systolic 128–164; BP diastolic 44–85
[2024-11-21 10:11] LABS: Venous Blood Gas B.E. 1.1 mmol/L (-4 to +4); Venous Blood Gas HCO3 27.5 mmol/L (22-27); Venous Blood Gas O2 Sat % 52.3 %; Venous Blood Gas pCO2 51 mmHg (35-48); Venous Blood Gas pH 7.34 (7.32-7.43); Venous Blood Gas pO2 31 mmHg (30-50)
[2024-11-21 10:12] LABS: Venous Blood Gas O2 Therapy %Oxygen/Room Air RA
[2024-11-21 10:15] LABS: % Basophils 0.5 % (0-2); % Eosinophils 5.4 % (0-6); % Immature Granulocytes 0.2 % (0-0.5); % Lymphocytes 15.4 % (20.5-51.1); % Monocytes 11.6 % (1.7-9.3); % Neutrophils 66.9 % (42.2-75.2); Absolute Eosinophils 0.4 10^3/uL (0-0.7); Absolute Monocytes 0.8 10^3/uL (0.1-0.6); Absolute Neutrophils 4.4 10^3/uL (1.4-6.5); Hematocrit 34.8 % (39.0-52.0); Hemoglobin 11.1 g/dL (13.0-18.0); Mean Corp Hgb Conc. 31.9 g/dL (33.0-37.0); Mean Corpuscular Hgb 29.9 pg (27.0-31.0); Mean Corpuscular Volume 93.8 fL (80.0-94.0); Mean Platelet Volume 9.6 fL (7.4-10.4); Nucleated Red Blood Cells % 0 % (-); Platelet Count 177 10^3/uL (130-400); Red Blood Cell Count 3.71 10^6/uL (4.70-6.10); Red Cell Dist. Width 12.7 % (11.5-14.5); White Blood Cell Count 6.6 10^3/uL (4.8-10.8)
[2024-11-21 10:16] LABS: ALT (SGPT) 11 U/L (0-50); AST (SGOT) 17 U/L (17-59); Albumin 3.6 g/dl (3.5-5.0); Alkaline Phosphatase 92 U/L (38-126); Blood Urea Nitrogen 36 mg/dl (9-20); Carbon Dioxide 28 mmol/L (22-30); Chloride 110 mmol/L (98-107); Glucose 111 mg/dl (70-99); Potassium 5.2 mmol/L (3.5-5.1); Sodium 142 mmol/L (135-145); Total Bilirubin 0.6 mg/dl (0.2-1.3); Total Protein 6.3 g/dl (6.3-8.2); eGFR 48.95
[2024-11-21 11:32] LABS: Urine Albumin 1+ (Neg - Trace); Urine Bilirubin Negative (Negative); Urine Character Clear (Clear); Urine Color Yellow; Urine Glucose Negative (Negative); Urine Ketone Negative (Negative); Urine Leukocyte 1+ (Negative); Urine Nitrite Negative (Negative); Urine Occult Blood 3+ (Negative); Urine Urobilinogen Negative (Neg - 1+)
[2024-11-21 12:49] LABS: COVID-19 Antigen Negative (Negative)
[2024-11-21 12:56] LABS: Urine Mucus Many
[2024-11-21 12:57] LABS: Urine Urothelial Cell 0-2 /LPF (FEW)
[2024-11-21 12:58] LABS: Urine Amorphous Seen; Urine Red Blood Cell 40-50 /HPF (0-2)
--- NOTE | 2024-11-21 14:33 | ED.GENMED ---
History of Present Illness
General
Chief Complaint: Change in Mental Status
Source: family and ambulance crew
Exam Limitations: dementia
Time Seen by Provider: 11/21/24 09:43
History of Present Illness
History of Present Illness:
84-year-old male presents with a change in mental status from local retirement. EMS states that they were also told he was hypoxic but they did not find any hypoxia. The patient was noted to have pinpoint pupils by EMS and given Narcan with no
change. Family later arrives. states he is at his baseline. He has had some restless legs at times and has been 'fidgety' and sees a neurologist. He has a history of dementia. She states he is at his base no recent reported fevers. No
vomiting. Patient offers no complaints but is notably and is poorly verbal
Past History
Past History
ED Past Medical History: GERD, HTN, Renal failure and Other (Dementia)
ED Past Surgical History: None
Social History
Tobacco: Non-smoker
Alcohol: None
Drug: None
Personal:
Living: retirement
Phy Exam
Physical Exam
Physical Exam:
CONSTITUTIONAL Patient alert . Well-appearing. Vital signs reviewed. Poor dentition
HEAD atraumatic, normocephalic.
EYES eyelids normal to inspection, Extraocular muscles intact, Conjunctiva normal, Sclera normal.
NECK normal range of motion, Trachea midline, no jugular venous distention.
RESPIRATORY CHEST No respiratory distress noted, Chest expansion equal, Bilateral breath sounds clear.
CARDIOVASCULAR regular rate and rhythm, Heart sounds normal.
ABDOMEN abdomen nontender, Bowel sounds normal. No distention.
BACK normal inspection, no obvious deformities
UPPER EXTREMITY range of motion normal, Motor strength normal, no cyanosis, no edema.
LOWER EXTREMITY range of motion normal, Motor strength normal, no cyanosis, no edema.
NEURO poorly follows command, No focal motor deficits, Cranial Nerves intact to screening exam.
Course
Orders/Labs/Results
Orders:
Orders
11/21/24 09:49
CT Head W/o Iv Contrast Urgent
Comment:
Reason For Exam: change in MS
11/21/24 09:56
Complete Blood Count/With Diff Urgent
Comprehensive Metabolic Panel Urgent
Urinalysis Reflex To Culture Urgent
Date Specimen was Collected: 11/21/24
Time Specimen was Collected: 09:50
Urine Microscopic Reflex Cult Urgent
Venous Blood Gas Urgent
%Oxygen/Room Air: RA
Urine Culture Urgent
RADHA Source: U
Specimen Description:
Date Specimen was Collected: 11/21/24
Time Specimen was Collected: 09:50
11/21/24 12:27
COVID-19 Antigen Urgent
Source: Nasal Swab
Influenza A+B Rapid Molecular Urgent
RADHA Source: Nasal Swab
Specimen Description:
11/21/24 14:33
CR Chest - 2 Views Urgent
Comment:
Reason For Exam: change in ms
Abnormal Lab Results
11/21/24
09:56
RBC 3.71 L 10^6/uL
(4.70-6.10)
Hgb 11.1 L g/dL
(13.0-18.0)
Hct 34.8 L %
(39.0-52.0)
MCHC 31.9 L g/dL
(33.0-37.0)
Absolute Lymphs (auto) 1.0 L 10^3/uL
(1.2-3.4)
Absolute Monos (auto) 0.8 H 10^3/uL
(0.1-0.6)
Lymphocytes % 15.4 L %
(20.5-51.1)
Monocytes % 11.6 H %
(1.7-9.3)
VBG pCO2 51 H mmHg
(35-48)
VBG HCO3 27.5 H mmol/L
(22-27)
Potassium 5.2 H mmol/L
(3.5-5.1)
Chloride 110 H mmol/L
(98-107)
BUN 36 H mg/dl
(9-20)
Creatinine 1.4 H mg/dL
(0.7-1.3)
Glucose 111 H mg/dl
(70-99)
Ur Occult Blood Reflex 3+ A
(Negative)
Leukocyte Esterase Rfl 1+ A
(Negative)
Urine RBC 40-50 A /HPF
(0-2)
Urine Albumin (Reflex) 1+ A
(Neg - Trace)
11/21/24 09:56
11/21/24 09:56
Vital Signs
Initial and Last Documented VS:
Initial Vital Signs
Temp Pulse Resp BP Pulse Ox
98 F 68 18 161/59 97
11/21/24 09:42 11/21/24 09:42 11/21/24 09:42 11/21/24 09:42 11/21/24 09:42
Last Documented Vital Signs
Temp Pulse Resp BP Pulse Ox
98 F 73 20 145/67 92
11/21/24 09:42 11/21/24 15:30 11/21/24 15:30 11/21/24 15:30 11/21/24 15:30
MDM/Problems Addressed
Differential Diagnosis Includes:
UTI, electrolyte imbalance, metabolic dysfunction, intracranial hemorrhage, metabolic encephalopathy, CVA
MDM/Problems Addressed:
Change in mental status
*Radiology
Radiology exam reviewed: radiology read reviewed
*Pulse Oximetry
Patient hypoxic: no
*[employer]ed [employer] Contact Printer Interpretation
Rate: normal
Interpretation: normal
Rhythm: sinus
*Critical Care Note
Total Time (30-74mins, 75-104mins- exclusive of procedures): Not Applicable
Data Reviewed
Review of Other/Old Records Reveals: Discharge Summary (Discharge summary reviewed from December 2023, admission for UTI)
Source: patient and family
Patient Management
Escalation/DeEscalation of care consider admission/obs:
Family reports patient is at baseline. Okay for discharge and follow-up at retirement. Labs and imaging unremarkable.
ED Attending Note
-
Portions of this chart may have been created with voice recognition software.� Occasional wrong word or��sound alike� substitutions may have occurred due to the inherent limitations of voice recognition software.
Discharge Plan
Departure
Patient Disposition: Home (Routine Discharge)
Date of Disposition: 11/21/24
Time of Disposition: 15:28
Patient with high blood pressure during this ER visit?: No
Discharge Problem:
Acute alteration in mental status
Instructions: Altered Mental Status (DC), BLOOD PRESSURE
Prescriptions:
No Action
amlodipine [Norvasc] 5 mg Tablet
5 mg PO DAILY
aspirin 81 mg Tablet,Delayed Release (Dr/Ec)
81 mg PO DAILY
tamsulosin [Flomax] 0.4 mg Capsule
0.4 mg PO QPM
finasteride [Proscar] 5 mg Tablet
5 mg PO DAILY
Dupixent Syringe 300 mg/2 mL Syringe
300 mg SC Q2W@1600
hydralazine 10 mg Tablet
5 mg PO TIDPRN PRN (Reason: HIGH BP)
pravastatin 40 mg Tablet
40 mg PO HS
dextromethorphan-guaifenesin [Chest Congestion Relief DM] 10-100 mg/5 mL Syrup
10 ml PO Q4HPRN PRN (Reason: chest congestion)
famotidine [Pepcid] 20 mg Tablet
20 mg PO NOON
losartan 100 mg Tablet
100 mg PO DAILY
sertraline 50 mg Tablet
50 mg PO NOON
memantine 10 mg Tablet
10 mg PO BID
cholecalciferol (vitamin D3) [Vitamin D3] 50 mcg (2,000 unit) Tablet
50 mcg PO DAILY
benzonatate 100 mg Capsule
100 mg PO TID PRN (Reason: cough)
diphenhydramine HCl [Benadryl] 25 mg Capsule
25 mg PO Q6HPRN PRN (Reason: allergies)
ergocalciferol (vitamin D2) [Vitamin D2] 1,250 mcg (50,000 unit) Capsule
1,250 mcg PO LUCIANO
Triamcinolone Cream
1 applic topical BID
Rx Instructions:
use x 14 days, end date 03/12/24
Referrals:
Antwan Carroll DO [Family Provider] -
Activity Restrictions/Additional Instructions:
Return immediately for any changes mentation, fevers, weakness of any kind or any other concerns. Please see your doctor in the next 2 days for follow-up and reevaluation.
Interventions
Interventions:
*General Assessment Last Done: 11/21/24 09:42
*Neglect/Abuse Screening Last Done: 11/21/24 09:42
ED- Fall Risk Assessment Last Done: 11/21/24 13:00
*Nursing Disposition Last Done: 11/21/24 16:18
ED- Neurological Assessment Last Done: 11/21/24 11:09
ED- Cardiac Assessment Last Done: 11/21/24 11:09
Discharge Date and Time
Discharge Date/Time: 11/21/24 16:18
Print Language: KHMER
== END 2024-11-21 16:18 | disposition home or self-care (01) ==
LOC: EMR 09:40
PROVIDERS: EMERGENCY PHYSICIAN Emergency Medicine; FAMILY PHYSICIAN Internal Medicine
DX: R41.82 Altered mental status, unspecified (principal); F03.90 Unspecified dementia, unspecified severity, without behavioral disturbance, psychotic disturbance, mood disturbance, and anxiety; I10 Essential (primary) hypertension; K21.9 Gastro-esophageal reflux disease without esophagitis; Z11.52 Encounter for screening for COVID-19
CPT/HCPCS: 99284; 70450; 71046; 80053; 81003; 81015; 82805; 85025; 87086; 87502; 87811

== ENCOUNTER → 2024-12-20 10:39 | Outpatient (REF) | payer OTHER, SELFPAY ==
[2024-12-20 14:42] LABS: TSH 2.31 uIU/ml (0.47-4.68)
[2024-12-20 15:01] LABS: Vitamin B12 474 pg/ml (239-931)
== END ==
LOC: OLABPATH 10:39
PROVIDERS: ATTENDING PHYSICIAN Internal Medicine
DX: L30.9 Dermatitis, unspecified (principal); F41.9 Anxiety disorder, unspecified; R33.9 Retention of urine, unspecified
CPT/HCPCS: 82607; 84443